=== PATIENT | male | born 1980 | race Caucasian/White ===

== ENCOUNTER 2022-07-23 16:44 | Outpatient (CLI) | payer OTHER, SELFPAY ==
[2022-07-23 22:05] LABS: Albumin* 4.8 g/dL (3.3-5.0)
[2022-07-23 22:08] LABS: Alkaline Phosphatase* 82 U/L (40-150); Amylase* 52 U/L (18-89); Aspartate Amino Transferase* 26 U/L (12-35); Bilirubin Direct* 0.2 mg/dL (0.0-0.5); Bilirubin Total* 0.6 mg/dL (0.1-1.5); Total Protein* 7.3 g/dL (6.0-8.3)
[2022-07-23 22:09] LABS: Alanine Aminotransferase* 33 U/L (4-50)
== END 2022-07-23 16:45 | disposition home or self-care (01) ==
PROVIDERS: Visit Provider Nurse Practitioner Family
DX: Z00.00 Encounter for general adult medical examination without abnormal findings (principal); R00.2 Palpitations; E66.9 Obesity, unspecified
CPT/HCPCS: 80076; 82150; 84443